=== PATIENT | female | born 1970 | race Hispanic/Latino ===

== ENCOUNTER 2021-05-25 12:09 | Outpatient (CLI) | payer BC | END 2021-05-25 12:10 | disposition home or self-care (01) | LOC: NM 12:09 | PROVIDERS: ATTEND Internal Medicine Endocrinology, Diabetes & Metabolism | DX: C73 Malignant neoplasm of thyroid gland (principal); E89.0 Postprocedural hypothyroidism | CPT/HCPCS: 79005; A9517 ==

== ENCOUNTER 2021-06-05 13:08 | Outpatient (CLI) | payer BC | END 2021-06-05 13:09 | disposition home or self-care (01) | LOC: PT 13:08 | PROVIDERS: ATTEND Internal Medicine Endocrinology, Diabetes & Metabolism | DX: C73 Malignant neoplasm of thyroid gland (principal) | CPT/HCPCS: 78018 ==